=== PATIENT | female | born 1985 | race Caucasian/White ===

== ENCOUNTER → 2017-02-25 | Outpatient (CLI) | payer MEDICAID ==
[~2017-02-25] MED LIST: ALBU18HF INH; ESCI20TA10 PO; GABA300C10 PO; LAMO200T3 PO; OMEP-110 PO
[2017-02-25 14:08] VITALS: BP 110/63
== END | disposition home or self-care (01) ==
LOC: LDOP 13:12
PROVIDERS: ATTEND Specialist
DX: O26.893 Other specified pregnancy related conditions, third trimester (principal); O99.343 Other mental disorders complicating pregnancy, third trimester; O99.333 Smoking (tobacco) complicating pregnancy, third trimester; F32.9 Major depressive disorder, single episode, unspecified; F17.200 Nicotine dependence, unspecified, uncomplicated; R10.9 Unspecified abdominal pain; Z3A.00 Weeks of gestation of pregnancy not specified
CPT/HCPCS: 36415; 59025; 81003; 82731; 87086; 99201; G0463